=== PATIENT | male | born 1985 | race Caucasian/White ===

== ENCOUNTER 2020-09-07 15:48 | Emergency (ER) | payer SELFPAY ==
[2020-09-08 07:07] LABS: SARS-CoV-2 NAA Detected (Not Detected)
== END 2020-09-07 17:46 | disposition home or self-care (01) ==
LOC: JVIRT 15:48
DX: U07.1 COVID-19 (principal)
CPT/HCPCS: C9803; G2251-GT; Q3014-GT; U0003; U0005